=== PATIENT | male | born 1960 | race Caucasian/White ===

== ENCOUNTER → 2020-12-10 | Outpatient (CLI) | payer MEDICARE ==
[~2020-12-10] MED LIST: ACTOS15 MG PO; AMIODARONE HCL200 MG PO; CEFUROXIME250 MG PO; ELIQUIS5 MG PO; FENOFIBRATE145 MG PO; FERROUS SULFAT325 M2 PO; FLOMAX0.4 MG PO; FUROSEMIDE40 MG PO; GABAPENTIN300 MG PO; GLUCOPHAGE1000 MG PO; JANUVIA50 MG PO; LASIX20 MG PO; LIPITOR TAB 2020 MG PO; LOPRESSOR 50 MG50 MG PO; NEURONTIN 400400 MG PO; NORCO 10-325 T1 EACH PO; POTASSIUM CHLO10 ME1 PO; PREDNISONE10 MG PO; PRINIVIL20 MG PO; RANEXA1000 MG PO; REQUIP2 MG PO; SINGULAIR10 MG PO; SOTALOL80 MG PO; TESTOSTERO200 MG/1 M IM; TOPROL XL50 MG PO; VITAMIN D250000 UNIT PO; ZANTAC150 MG PO
[2020-12-10 13:29] LABS: WHITE BLOOD COUNT 12.6 K/UL (4.5-11.0)
[2020-12-10 13:30] LABS: HEMOGLOBIN 10.2 gm/dl (14.0-17.5); RED BLOOD COUNT 3.85 M/UL (4.20-5.50)
== END ==
LOC: LAB 12:54
PROVIDERS: Nurse Practitioner Family
DX: M31.0 Hypersensitivity angiitis (principal)
CPT/HCPCS: 36415; 80053; 82570; 84156; 85025

== ENCOUNTER → 2021-01-29 | Outpatient (CLI) | payer MEDICARE | LOC: HEART 5 10:17 | DX: I48.91 Unspecified atrial fibrillation (principal); I48.92 Unspecified atrial flutter; R00.1 Bradycardia, unspecified | CPT/HCPCS: 93242 ==

== ENCOUNTER 2021-02-24 15:05 | Emergency (ER) | payer MEDICARE ==
[2021-02-24 19:32] LABS: HEMOGLOBIN 10.6 gm/dl (14.0-17.5); RED BLOOD COUNT 3.95 M/UL (4.20-5.50); WHITE BLOOD COUNT 15.5 K/UL (4.5-11.0)
[2021-02-24 19:54] LABS: BUN/CREATININE RATIO 16 (0-10)
== END 2021-02-25 03:15 | disposition home or self-care (01) ==
LOC: ER1 15:05
PROVIDERS: Family Medicine
DX: R10.84 Generalized abdominal pain (principal); R07.9 Chest pain, unspecified; I50.9 Heart failure, unspecified; E11.9 Type 2 diabetes mellitus without complications; I48.91 Unspecified atrial fibrillation; F17.220 Nicotine dependence, chewing tobacco, uncomplicated
CPT/HCPCS: 71045; 80053; 81001; 82150; 82550; 82553; 83605; 83690; 83874; 83880; 84484; 85025; 85379; 93005; 96374; 96375; 99284; J2270; J2405; Q9967

== ENCOUNTER → 2021-03-21 | Outpatient (CLI) | payer MEDICARE | LOC: EXRD 15:39 | DX: N18.30 Chronic kidney disease, stage 3 unspecified (principal); N26.1 Atrophy of kidney (terminal) | CPT/HCPCS: 76775 ==

== ENCOUNTER → 2021-04-07 | Outpatient (CLI) | payer MEDICARE | LOC: RAD 16:49 | DX: R06.02 Shortness of breath (principal); I51.7 Cardiomegaly; R91.8 Other nonspecific abnormal finding of lung field | CPT/HCPCS: 71046 ==

== ENCOUNTER → 2021-04-07 | Outpatient (CLI) | payer MEDICARE | LOC: HEART 5 15:26 | DX: I50.22 Chronic systolic (congestive) heart failure (principal); R06.02 Shortness of breath; I08.2 Rheumatic disorders of both aortic and tricuspid valves; R93.1 Abnormal findings on diagnostic imaging of heart and coronary circulation; I27.20 Pulmonary hypertension, unspecified | CPT/HCPCS: 93306 ==

== ENCOUNTER → 2021-06-09 | Outpatient (CLI) | payer MEDICARE ==
[~2021-06-09] MED LIST changes: +ALBUTEROL2.5 MG/3 M INH; +CENTRUM SILVER1 EAC1 PO; +CLINDAMYCIN HC300 MG PO; +COZAAR 50MG TAB50 MG PO; +DILTIAZEM 24HR240 M1 PO; +ECOTRIN81 MG PO; +ESCITALOPRAM OX10 MG PO; +ESOMEPRAZOLE MA40 MG PO; +FISH OIL 1,0001 EACH PO; +HYDRALAZINE HCL25 MG PO; +LEVOFLOXACIN500 MG PO; +LISINOPRIL-HCT1 EAC1 PO; +MULTAQ 400 MG400 MG PO; -REQUIP2 MG PO; +REVATIO 20 MG T20 MG PO; +ROPINIROLE HCL2 MG PO; +ZAROXOLYN/DIUL2.5 MG PO
== END ==
LOC: LAB 11:44
PROVIDERS: Internal Medicine Nephrology
DX: N18.30 Chronic kidney disease, stage 3 unspecified (principal); E78.5 Hyperlipidemia, unspecified
CPT/HCPCS: 36415; 80053; 81001; 82550; 82570; 83970; 84100; 84156

== ENCOUNTER → 2021-06-09 | Outpatient (CLI) | payer MEDICARE | LOC: CT 08:30 → KOH-I 10:27 → CT 10:30 | DX: M89.9 Disorder of bone, unspecified (principal) | CPT/HCPCS: 71250 ==

== ENCOUNTER → 2021-06-23 | Outpatient (CLI) | payer MEDICARE ==
[~2021-06-23] VITALS: Ht 172.7 cm; Wt 104.3 kg
== END ==
LOC: OPSV 08:00
DX: M31.0 Hypersensitivity angiitis (principal); M06.9 Rheumatoid arthritis, unspecified
CPT/HCPCS: 96375; 96413; 96415; J2930; J7030; J9312

== ENCOUNTER → 2021-07-18 | Outpatient (CLI) | payer MEDICARE | LOC: LAB 10:23 | PROVIDERS: Internal Medicine Cardiovascular Disease | DX: I11.0 Hypertensive heart disease with heart failure (principal); I50.42 Chronic combined systolic (congestive) and diastolic (congestive) heart failure; I48.91 Unspecified atrial fibrillation; R06.02 Shortness of breath | CPT/HCPCS: 36415; 36591; 71046; 80048 ==

== ENCOUNTER 2021-07-22 09:41 | Outpatient (CLI) | payer MEDICARE ==
[~2021-07-22] VITALS: Ht 172.7 cm; Wt 10.0 kg
[~2021-07-22 09:41] MED LIST changes: -ALBUTEROL2.5 MG/3 M INH; -CENTRUM SILVER1 EAC1 PO; -CLINDAMYCIN HC300 MG PO; -COZAAR 50MG TAB50 MG PO; -DILTIAZEM 24HR240 M1 PO; -ECOTRIN81 MG PO; -ESCITALOPRAM OX10 MG PO; -ESOMEPRAZOLE MA40 MG PO; -FISH OIL 1,0001 EACH PO; -HYDRALAZINE HCL25 MG PO; -LEVOFLOXACIN500 MG PO; -LISINOPRIL-HCT1 EAC1 PO; -MULTAQ 400 MG400 MG PO; -REVATIO 20 MG T20 MG PO; -ZAROXOLYN/DIUL2.5 MG PO
[2021-07-22] MEDS ORDERED: LISINOPRIL-HCT1 EAC1 PO (11:00)
[2021-07-22] MEDS ORDERED: ALBUTEROL2.5 MG/3 M INH (11:07)
[2021-07-22] MEDS ORDERED: CENTRUM SILVER1 EAC1 PO (11:08)
[2021-07-22] MEDS ORDERED: ECOTRIN81 MG PO (11:08)
[2021-07-22] MEDS ORDERED: DILTIAZEM 24HR240 M1 PO (11:09)
[2021-07-22] MEDS ORDERED: ESCITALOPRAM OX10 MG PO (11:10)
[2021-07-22] MEDS ORDERED: ESOMEPRAZOLE MA40 MG PO (11:10)
[2021-07-22] MEDS ORDERED: FISH OIL 1,0001 EACH PO (11:10)
[2021-07-22] MEDS ORDERED: HYDRALAZINE HCL25 MG PO (11:11)
[2021-07-22] MEDS ORDERED: ZAROXOLYN/DIUL2.5 MG PO (11:11)
[2021-07-22] MEDS ORDERED: COZAAR 50MG TAB50 MG PO (11:12)
[2021-07-22] MEDS ORDERED: MULTAQ 400 MG400 MG PO (11:12)
[2021-07-22] MEDS ORDERED: REVATIO 20 MG T20 MG PO (11:13)
[2021-07-23] MEDS ORDERED: LEVOFLOXACIN500 MG PO ×2 (12:59→13:17)
[2021-07-23] MEDS ORDERED: CLINDAMYCIN HC300 MG PO (13:17)
== END 2021-07-23 13:58 | disposition home or self-care (01) ==
LOC: CATH 09:41 → PROG CARE 15:55 → CATH 07-23 13:58
DX: I44.4 Left anterior fascicular block (principal); I48.0 Paroxysmal atrial fibrillation; I48.92 Unspecified atrial flutter; I11.0 Hypertensive heart disease with heart failure; I50.43 Acute on chronic combined systolic (congestive) and diastolic (congestive) heart failure; I42.9 Cardiomyopathy, unspecified; E11.9 Type 2 diabetes mellitus without complications; D68.9 Coagulation defect, unspecified; M19.90 Unspecified osteoarthritis, unspecified site; M31.0 Hypersensitivity angiitis; K21.9 Gastro-esophageal reflux disease without esophagitis; E78.00 Pure hypercholesterolemia, unspecified; E55.9 Vitamin D deficiency, unspecified; G47.33 Obstructive sleep apnea (adult) (pediatric); E66.01 Morbid (severe) obesity due to excess calories; Z98.890 Other specified postprocedural states; Z86.79 Personal history of other diseases of the circulatory system; Z79.82 Long term (current) use of aspirin; Z79.01 Long term (current) use of anticoagulants; Z79.84 Long term (current) use of oral hypoglycemic drugs; Z79.899 Other long term (current) drug therapy
CPT/HCPCS: 33225; 71045; 82962; 93005; 93650; 99152; 99153; C1725; C1730; C1733; C1766; C1769; C1898; C1900; C2621; J1200; J1644; J2250; J3010; J3370; J7040; J7050; J7070; Q9965

== ENCOUNTER → 2022-06-11 | Outpatient (CLI) | payer MEDICARE ==
[~2022-06-11] MED LIST changes: +ACETAZOLAMIDE250 MG PO; +ALBUTEROL2.5 MG/3 M INH; +BACITRACIN28.4 GM TOP; +CENTRUM SILVER1 EAC1 PO; +CLINDAMYCIN HC300 MG PO; +COZAAR 50MG TAB50 MG PO; +CYANOCOBAL1000 MCG/1 SC; +DILTIAZEM 24HR240 M1 PO; +ECOTRIN81 MG PO; +ESCITALOPRAM OX10 MG PO; +ESOMEPRAZOLE MA40 MG PO; +FARXIGA5 MG PO; +FISH OIL 1,0001 EACH PO; +HYDRALAZINE HCL25 MG PO; +HYDROCODON-ACE1 EAC6 PO; +ISOSORBIDE MONO30 MG PO; +LEVOFLOXACIN500 MG PO; +LISINOPRIL-HCT1 EAC1 PO; +LORATADINE10 M1 PO; +LOSARTAN POTASS50 MG PO; +METOPROLOL TAR100 MG PO; +MULTAQ 400 MG400 MG PO; -NORCO 10-325 T1 EACH PO; +PIOGLITAZONE HC15 MG PO; +POTASSIUM CHLO20 ME2 PO; +PREDNISONE10 M1 PO; -PREDNISONE10 MG PO; +PROAIR HFA8.5 GM INH; +REVATIO 20 MG T20 MG PO; +ZAROXOLYN/DIUL2.5 MG PO
== END ==
LOC: US 11:00
DX: N28.1 Cyst of kidney, acquired (principal)

== ENCOUNTER → 2022-07-16 | Outpatient (CLI) | payer MEDICARE | LOC: HEART 5 11:00 | DX: I48.0 Paroxysmal atrial fibrillation (principal); R06.02 Shortness of breath; I27.20 Pulmonary hypertension, unspecified; Z95.0 Presence of cardiac pacemaker; I70.0 Atherosclerosis of aorta; I08.3 Combined rheumatic disorders of mitral, aortic and tricuspid valves | CPT/HCPCS: 93306 ==

== ENCOUNTER → 2022-08-21 | Outpatient (CLI) | payer MEDICARE | LOC: RAD 11:10 | DX: I50.9 Heart failure, unspecified (principal); R06.02 Shortness of breath; J84.9 Interstitial pulmonary disease, unspecified | CPT/HCPCS: 71046 ==